=== PATIENT | female | born 1935 | race Caucasian/White ===

== ENCOUNTER 2021-03-26 10:18 | Observation (INO) ==
[2021-03-26] MEDS ORDERED: Colchicine 0.6 MG TABLET PO ONE ×2 (12:01→14:15)
[2021-03-26 12:53] LABS: Basophils # 0.1 K/mcL (0.0-0.2); Eosinophils % 0.4 %; Hematocrit 36.9 % (35.3-44.9); Hemoglobin 11.6 g/dL (11.5-15.4); Immature Granulocytes % 0.2 % (0-4); Lymphocytes # 1.2 K/mcL (0.6-4.6); Lymphocytes % 14.3 %; Mean Corpuscular HGB Conc 31.4 g/dL (31.6-35.5); Mean Corpuscular Hemoglobin 30.6 pg (28.0-33.3); Mean Corpuscular Volume 97.4 fL (83.0-100.0); Mean Platelet Volume 10.7 fL (9.4-12.4); Monocytes # 0.5 K/mcL (0.0-1.3); Monocytes % 6.6 %; Neutrophils # 6.3 K/mcL (1.6-8.9); Platelet Count 366 K/mcL (140-400); Red Blood Count 3.79 M/mcL (3.82-4.97); Red Cell Distribution Width 14.6 % (11.5-14.5); Segmented Neutrophils % 77.5 %; White Blood Count 8.1 K/mcL (4.3-11.1)
[2021-03-26 13:15] LABS: Alanine Aminotransferase 28 Units/L (7-52); Albumin/Globulin Ratio 1.4 (1.1-2.2); Alkaline Phosphatase 134 Units/L (34-104); Aspartate Amino Transferase 25 Units/L (13-39); BUN/Creatinine Ratio 33 (6-26); Bilirubin,Direct 0.1 mg/dL (0.0-0.2); Bilirubin,Indirect 0.3 mg/dL (0.0-1.0); Bilirubin,Total 0.4 mg/dL (0.3-1.0); Blood Urea Nitrogen 38 mg/dL (8-23); Calcium 9.4 mg/dL (8.6-10.3); Carbon Dioxide 19 mEq/L (23-29); Chloride 108 mEq/L (98-107); Globulin 2.8 g/dL (2.4-3.5); Glucose 90 mg/dL (70-105); Osmolality,Calculated 295 (280-300); Potassium 4.4 mEq/L (3.5-5.1); Sodium 138 mEq/L (136-145); Total Protein 6.8 g/dL (6.4-8.9); Troponin I < 0.03 ng/mL (< 0.04); Uric Acid 9.4 mg/dL (2.3-7.6); eGFR For African Americans 54 (> 60); eGFR For Non-African Americans 44 (> 60)
[2021-03-26] MEDS ORDERED: Aspirin 81 MG TAB.CHEW PO ONE (14:16)
[2021-03-26] MEDS ORDERED: Acetaminophen 325 MG TABLET PO PRN (14:53)
[2021-03-26] MEDS ORDERED: Naloxone 0.4 MG/ML INJ IVP PRN (14:53)
[2021-03-26] MEDS ORDERED: Ondansetron 4 MG/2 ML VIAL IVP PRN (14:53)
[2021-03-26] MEDS ORDERED: predniSONE 20 MG TABLET PO ONE (15:00)
[2021-03-26] MEDS ORDERED: Perflutren Lipid Microsphere 1.3 ML in 0.9 % Sodium Chloride 8.7 ML IVP PRN (15:01)
[2021-03-26 15:24] LABS: Triglycerides 181 mg/dL (< 150)
[2021-03-26 15:25] LABS: Cholesterol 141 mg/dL (< 200); HDL Cholesterol 28 mg/dL (40-59); LDL Cholesterol,Calculated 77 mg/dL (< 100)
[2021-03-26] MEDS: *HR* Heparin 5,000 UNIT/ML VIAL SQ SCH (16:37)
[2021-03-27 01:49] LABS: Hematocrit 31.2 % (35.3-44.9); Mean Corpuscular HGB Conc 31.7 g/dL (31.6-35.5); Mean Corpuscular Hemoglobin 30.7 pg (28.0-33.3); Mean Corpuscular Volume 96.9 fL (83.0-100.0); Mean Platelet Volume 10.7 fL (9.4-12.4); Platelet Count 355 K/mcL (140-400); Red Blood Count 3.22 M/mcL (3.82-4.97); Red Cell Distribution Width 14.3 % (11.5-14.5); White Blood Count 5.3 K/mcL (4.3-11.1)
[2021-03-27 01:58] LABS: Hemoglobin 9.9 g/dL (11.5-15.4); INR 1.1; Prothrombin Time 12.6 Seconds (9.4-12.1)
[2021-03-27 02:14] LABS: Calcium 8.8 mg/dL (8.6-10.3); Potassium 4.8 mEq/L (3.5-5.1)
[2021-03-27 02:21] LABS: Estimated Average Glucose 126 mg/dl
[2021-03-27] MEDS: *HR* Heparin 5,000 UNIT/ML VIAL SQ SCH (05:17)
[2021-03-27] MEDS ORDERED: predniSONE 20 MG TABLET PO SCH (09:00)
[2021-03-27] MEDS ORDERED: Aspirin 81 MG TAB.CHEW PO SCH (09:00)
[2021-03-27 11:05] VITALS: BP 124/64
== END 2021-03-27 14:45 | disposition home health service (06) ==
LOC: 3BNU 10:18 → EMEROOARM 10:18 → SUATTDRO 14:23 → 3BNU 15:38
PROVIDERS: ADMIT Internal Medicine; ATTEND Internal Medicine